=== PATIENT | female | born 2000 | race African-American/Black ===

== ENCOUNTER 2022-01-18 13:35 | Emergency (ER) | payer OTHER ==
[~2022-01-18] VITALS: Ht 167.6 cm; Wt 61.4 kg
[2022-01-18 14:00] VITALS: BP 108/66
--- NOTE | 2022-01-18 14:14 | ED Lower Extremity ---
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 The trigger for this pain was a race in which she suddenly had hamstring pain and cramping and was unable to complete the race. This was on December 26. Since then patient has only been able to walk and jog, but unable to sprint due to the pain. Patient has not had any imaging since then. The [employer] has recommended for her to obtain an MRI, which has not been done yet. Patient has a history of a knee injury long back for which she needed to wear knee brace, but she does not know for sure what the injury actually was. Denies any actual trauma, falls, s ensory loss. Allergies and Home Medications Allergies Coded Allergies: No Known Drug Allergies (Unverified , 01/18/22) Patient Home Medication List Home Medication List Reviewed: Yes Review of Systems Constitutional: no symptoms reported EENTM: no symptoms reported Respiratory: no symptoms reported Cardiovascular: no symptoms reported Gastrointestinal: no symptoms reported Genitourinary: no symptoms reported Musculoskeletal: muscle pain, muscle cramps Skin: no symptoms reported Psychiatric/Neurological: No Symptoms Reported Physical Exam Vital Signs Vital Signs - First Documented 01/18/22 14:00 Temp 36.0 Pulse 61 Resp 12 B/P (MAP) 108/66 (80) Capillary Refill : Height, Weight, BMI Height: '" Weight: lbs. oz. kg; BMI Method: General Appearance: WD/WN, no apparent distress HEENT: PERRL/EOMI Neck: full range of motion Hips: right hip non-tender, right hip normal inspection, right hip normal range of motion, right hip no evidence of injury Legs: right leg non-tender, right leg normal inspection, right leg normal range of motion Knees: right knee non-tender, right knee normal inspection, right knee normal range of motion Neurologic/Psychiatric: no motor/sensory deficits, alert, normal mood/affect, oriented x 3 Skin: normal color Progress/Results/Core Measures Results/Orders My Orders Orders - INDIO SULLIVAN MD Knee 3 View Right (01/18/22 13:47) Femur 2 View Right (01/18/22 14:07) Vital Signs/I&O 01/18/22 14:00 Temp 36.0 Pulse 61 Resp 12 B/P (MAP) 108/66 (80) Progress Progress Note : Progress Note 1. RIGHT LOWER EXTREMITY MUSCLE INJURY/ STRAIN: - XR RIGHT KNEE & FEMUR: normal - NSAID/ heat - Ortho clinic follow up and will need MRI - AYLA bandage Diagnostic Imaging Diagonstic Imaging: Xray Plain Films/CT/US/NM/MRI: femur, knee Comments [facility] [place], [place] NAME: WILLY CAMPBELL [facility] REC#: [id number] PT STATUS: REG ER : 2001 PHYSICIAN: INDIO SULLIVAN MD ADMIT DATE: 01/18/22/ER FS Draft Date of Exam:01/18/22 KNEE 3 VIEW RIGHT INDICATION: Right leg pain. AP, oblique, and lateral views of the right knee are obtained. FINDINGS: No acute fracture or dislocation is identified. No abnormal lytic or sclerotic focus is seen, and there is no radiopaque foreign body. IMPRESSION: No acute abnormality. Dictated on workstation # [id number] Dict: 01/18/22 1428 Trans: 01/18/22 1430 [id number] Interpreted by: JUAQUIN ALEXANDRE MD Electronically signed by: [facility], [place] NAME: WILLY CAMPBELL [facility] REC#: [id number] PT STATUS: REG ER : 2000 PHYSICIAN: INDIO SULLIVAN MD ADMIT DATE: 01/18/22/ER FS Draft Date of Exam:01/18/22 FEMUR 2 VIEW RIGHT INDICATION: Right leg pain. AP and lateral views of the right femur are obtained. FINDINGS: No acute fracture or dislocation is identified. No abnormal lytic or sclerotic focus is seen, and there is no radiopaque foreign body. IMPRESSION: No acute abnormality. Dictated on workstation # [id number] Dict: 01/18/22 1429 Trans: 01/18/22 143 [id number] Interpreted by: JUAQUIN ALEXANDRE MD Electronically signed by: Departure Impression Primary Impression: Hamstring muscle strain Qualified Codes: S76.311A - Strain of muscle, fascia and tendon of the posterior muscle group at thigh level, right thigh, initial encounter Additional Impression: Hamstring tear Disposition: HOME, SELF-CARE Condition: Stable Departure-Patient Inst. Referrals: DEIDRA JJ JUSTIN S MD Patient Instructions: Hamstring Injury, Hamstring Muscle Strain ED Add. Discharge Instructions: -Follow up with Ortho, 2 clinic listed to call for appointment. Patient will need a MRI. - NSAID/ AYLA/ Heat - No sprinting/ running until cleared by Ortho All discharge instructions reviewed with patient and/or family. Voiced understanding. INDIO SULLIVAN MD Jan 18, 2022 14:14
--- NOTE | 2022-01-18 14:30 | Diagnostic Imaging Report ---
INDICATION: Right leg pain. AP, oblique, and lateral views of the right knee are obtained. FINDINGS: No acute fracture or dislocation is identified. No abnormal lytic or sclerotic focus is seen, and there is no radiopaque foreign body. There may be mild lateral subluxation of the patella. IMPRESSION: No acute osseous abnormality is identified. There may be slight lateral deviation of the patella, and correlation with patellar tracking may be useful. Dictated by: Dictated on workstation # [id number]
--- NOTE | 2022-01-18 14:34 | Diagnostic Imaging Report ---
INDICATION: Right leg pain. AP and lateral views of the right femur are obtained. FINDINGS: No acute fracture or dislocation is identified. No abnormal lytic or sclerotic focus is seen, and there is no radiopaque foreign body. IMPRESSION: No acute abnormality. Dictated by: Dictated on workstation # [id number]
== END 2022-01-18 14:56 | disposition home or self-care (01) ==
LOC: ER FS 13:41
DX: S76.321A Laceration of muscle, fascia and tendon of the posterior muscle group at thigh level, right thigh, initial encounter (principal); Y92.39 Other specified sports and athletic area as the place of occurrence of the external cause
CPT/HCPCS: 73552; 73562; 99281